=== PATIENT | female | born 1970 | race Caucasian/White ===

== ENCOUNTER 2017-07-01 19:01 | Emergency (ER) | payer BC ==
[~2017-07-01] VITALS: Ht 162.6 cm; Wt 79.4 kg
[2017-07-01 19:10] VITALS: BP_SYST 128
--- NOTE | 2017-07-01 19:46 | NUR ---
Patient to ER HW2 for evaluation. Side rails up. Report given to
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
--- NOTE | 2017-07-01 19:55 | NUR ---
Claudia ZAVALA at chair side to evaluate patient.
[2017-07-01] MEDS ORDERED: HYDROcodone/ACETAMIN 5-325 MG TAB (NORCO/ VICODIN) PO ONE (20:00)
--- NOTE | 2017-07-01 20:05 | NUR ---
Patient refusing test, and [place] as patient reports that she has to work tonight.
[2017-07-01] MEDS ORDERED: ACETAMINOPHEN 500 MG TABLET PO ONE (20:15)
--- NOTE | 2017-07-01 20:20 | NUR ---
Patient to X-ray department for films.
--- NOTE | 2017-07-01 20:30 | NUR ---
Patient back from X-ray department in stable condition.
--- NOTE | 2017-07-01 20:35 | NUR ---
No scanner available, had to manually enter information.
--- NOTE | 2017-07-01 21:00 | NUR ---
Splint being applied by Ellis CHAUDHRY, patient being fitted with crutches and will be given instructions on how to use. Splint and crutch check to be done by Claudia ZAVALA prior to patient discharge.
[2017-07-01 21:20] VITALS: BP_SYST 120
--- NOTE | 2017-07-01 21:20 | NUR ---
Patient given written and verbal discharge instructions and verbalizes understanding. ER MD discussed with patient the results and treatment provided. Patient in stable condition. ID arm band removed. Rx of Motrin given. Patient educated on pain management and to follow up with PMD. Pain Scale 5. Opportunity for questions provided and answered. Patient left ER ambulating with slow, steady gait in no acute distress. Patient using crutches to assist with ambulation, ambulating with slow, steady gait with male visitor at bedside. No adverse reaction noted to medication.
== END 2017-07-01 21:20 | disposition home or self-care (01) ==
LOC: SED 19:01
DX: S93.691A Other sprain of right foot, initial encounter (principal); E07.9 Disorder of thyroid, unspecified; R03.0 Elevated blood-pressure reading, without diagnosis of hypertension; X58.XXXA Exposure to other specified factors, initial encounter; Y93.89 Activity, other specified; Y92.89 Other specified places as the place of occurrence of the external cause; Y99.8 Other external cause status
CPT/HCPCS: 99284